=== PATIENT | male | born 2005 ===

== ENCOUNTER 2023-01-16 16:58 | Emergency (ER) | payer OTHER ==
[~2023-01-16] VITALS: Ht 172.7 cm; Wt 65.9 kg
[2023-01-16 17:11] VITALS: BP 137/76
[2023-01-16] MEDS ORDERED: SPIR-37 PO (17:19)
[2023-01-16] MEDS ORDERED: ESTR-95 PO (17:19)
== END 2023-01-16 20:30 | disposition left against medical advice (07) ==
LOC: EMS 17:02
DX: R05.9 Cough, unspecified (principal); Z53.21 Procedure and treatment not carried out due to patient leaving prior to being seen by health care provider
CPT/HCPCS: 99281; Z7502